=== PATIENT | male | born 1970 | race Caucasian/White ===

== ENCOUNTER → 2017-03-28 | Outpatient (CLI) | payer OTHER | END | disposition home or self-care (01) | LOC: RAD 09:18 | DX: M62.561 Muscle wasting and atrophy, not elsewhere classified, right lower leg (principal); M19.071 Primary osteoarthritis, right ankle and foot; M85.861 Other specified disorders of bone density and structure, right lower leg; M17.11 Unilateral primary osteoarthritis, right knee; M11.261 Other chondrocalcinosis, right knee; I70.8 Atherosclerosis of other arteries | CPT/HCPCS: 73590; 73600 ==